=== PATIENT | female | born 1945 | race Caucasian/White ===

== ENCOUNTER 2018-09-02 09:01 | Inpatient (IN) | payer MEDICARE, MEDICAID ==
[~2018-09-02] VITALS: Ht 165.1 cm; Wt 83.9 kg
[~2018-09-02 09:01] MED LIST: ACET-8386 PO; ACYC400T PO; CYCL10TA79 PO; DOCU-300 PO; METF500T7 PO; METO25TA PO; NOVR SUBQ; PRED50TA2 PO
[2018-09-02 09:10] VITALS: BP 144/72
[2018-09-02] MEDS ORDERED: KETOROLAC 15 MG/ML VIAL IVP ONE (09:30)
[2018-09-02] MEDS ORDERED: ONDANSETRON 4 MG/2 ML VIAL IVP ONE (09:30)
[2018-09-02 10:19] LABS: BILIRUBIN,URINE NEGATIVE (NEGATIVE); BLOOD, URINE NEGATIVE (NEGATIVE); COLOR,URINE YELLOW (YELLOW); NITRITE, URINE NEGATIVE (NEGATIVE); PH,URINE 1.025 (5.0-9.0); UGLUCOSE NEGATIVE (NEGATIVE)
[2018-09-02 10:22] LABS: APPEARANCE,URINE SLIGHTLY HAZY (CLEAR); LEUKOCYTE ESTERASE ,URINE 1+ (NEGATIVE)
[2018-09-02 10:23] LABS: RBC,URINE 0-5 (RARE) /HPF (0-5); WBC,URINE 16-25 (MOD) /HPF (0-5)
[2018-09-02 10:38] LABS: BASOPHILS % (AUTO) 0.6 % (0.0-2.0); EOSINOPHILS # (AUTO) 0.1 K/uL (0-0.4); HEMATOCRIT 26.2 % (36-48); HEMOGLOBIN 8.1 g/dL (12.0-16.0); LYMPHOCYTES # (AUTO) 0.9 K/uL (2.5-16.5); LYMPHOCYTES % (AUTO) 23.4 % (20.5-51.1); MEAN CORPUSCULAR HEMOGLOBIN 22 pg (27-31); MEAN CORPUSCULAR HGB CONC 31 g/dL (33-37); MEAN CORPUSCULAR VOLUME 71.1 fL (80-94); MONOCYTES # (AUTO) 0.3 K/uL (0.8-1.0); MONOCYTES % (AUTO) 6.7 % (1.7-9.3); NEUTROPHILS # (AUTO) 2.5 K/uL (1.8-7.7); NEUTROPHILS % (AUTO) 67.3 % (42.2-75.2); PLATELET COUNT (AUTO) 96 K/uL (140-450); RED BLOOD CELL COUNT(AUTO) 3.68 MIL/uL (4.20-5.40); WHITE BLOOD COUNT (AUTO) 3.7 K/uL (4.8-10.8)
[2018-09-02] MEDS ORDERED: cefTRIAXone 1,000 MG VIAL ONE (10:38)
[2018-09-02 10:51] LABS: ANION GAP 11.2 (8-16); CARBON DIOXIDE 27.6 mmol/L (21-32); CHLORIDE 106 mmol/L (98-107); CREATININE 0.6 mg/dL (0.6-1.3); GLUCOSE 167 mg/dL (74-106); POTASSIUM 3.8 mmol/L (3.5-5.1); SODIUM SERUM 141 mmol/L (136-145); UREA NITROGEN, BLOOD 12 mg/dL (7-18)
[2018-09-02 10:54] LABS: PROTHROMBIN TIME 11.3 secs (10.8-13.4)
[2018-09-02 11:04] LABS: ALBUMIN 3.2 g/dL (3.4-5.0); ASPARTATE AMINOTRANSFERASE 32 U/L (15-37); LIPASE 94 U/L (73-393); TOTAL BILIRUBIN 0.6 mg/dL (0.0-1.0)
[2018-09-02] MEDS ORDERED: PIPERACILLIN/TAZOBACTAM 3.375 GM in DEXTROSE 5% 50 ML IV ONE (11:30)
[2018-09-02] MEDS ORDERED: PIPERACILLIN/TAZOBACTAM 3.375 GM VIAL IV ONE (11:51)
[2018-09-02] MEDS ORDERED: NACL 0.9% 1,000 ML IV SCH (12:11)
[2018-09-02] MEDS ORDERED: DOCUSATE SODIUM 100 MG GELCAP PO PRN (12:15)
[2018-09-02] MEDS ORDERED: ONDANSETRON 4 MG/2 ML VIAL IM/IVP PRN (12:15)
[2018-09-02] MEDS ORDERED: INSULIN LISPRO SLIDING SCALE 100 UNITS/ML VIAL SUBQ PRN (12:40)
[2018-09-02] MEDS ORDERED: DEXTROSE 50% 50 ML SYR IVP PRN ×2 (12:40→14:25)
[2018-09-02] MEDS ORDERED: INSULIN HUMAN REGULAR SUBQ SCH (13:00)
[2018-09-02 13:26] LABS: MAGNESIUM 1.8 mg/dL (1.8-2.4); PHOSPHORUS 2.7 mg/dL (2.5-4.9)
[2018-09-02] MEDS ORDERED: NACL 0.9% 1,000 ML IV ONE (14:25)
[2018-09-02 14:45] VITALS: BP 142/65
[2018-09-02] MEDS ORDERED: MORPHINE SULFATE 4 MG/ML SYR IVP PRN ×2 (14:55→15:10)
[2018-09-02 15:21] LABS: CHOL/HDL RATIO 2.5 (1-4.5)
[2018-09-02] MEDS: MORPHINE SULFATE 4 MG/ML SYR IVP PRN ×2 (15:28→21:21)
[2018-09-02 16:00] VITALS: BP 141/60
[2018-09-02] MEDS: SODIUM FERRIC GLUCONATE 125 MG in NACL 0.9% 100 ML IV SCH (16:23)
[2018-09-02] MEDS ORDERED: BLOOD GLUCOSE MONITORING 1 DEV DEV FS SCH (16:30)
[2018-09-02] MEDS: BLOOD GLUCOSE MONITORING 1 DEV DEV FS SCH ×2 (16:30→21:07)
[2018-09-02] MEDS ORDERED: metFORMIN 500 MG TAB PO SCH (17:00)
[2018-09-02] MEDS ORDERED: INSULIN REGULAR, HUMAN 100 UNIT/ML VIAL SUBQ SCH (17:00)
[2018-09-02] MEDS ORDERED: ATOR40TA PO (17:09)
[2018-09-02] MEDS ORDERED: GABA300C PO (17:09)
[2018-09-02] MEDS ORDERED: METF850T PO (17:09)
[2018-09-02] MEDS ORDERED: ISOS10TA9 PO (17:09)
[2018-09-02] MEDS ORDERED: LISI-420 PO (17:09)
[2018-09-02] MEDS: INSULIN LISPRO SLIDING SCALE 100 UNITS/ML VIAL SUBQ PRN ×2 (17:37→21:09)
[2018-09-02] MEDS ORDERED: KETOROLAC 30 MG/ML VIAL IVP SCH (18:35)
[2018-09-02 20:00] VITALS: BP 142/48
[2018-09-02] MEDS: ISOSORBIDE DINITRATE 10 MG TAB PO SCH (20:43)
[2018-09-02] MEDS ORDERED: METFORMIN HCL 1000 MG PO SCH (21:00)
[2018-09-03] VITALS (7 sets, daily range): BP systolic 127–158; BP diastolic 46–66
[2018-09-03] MEDS ORDERED: HYDROcodone/APAP 5/325 MG 1 TAB TAB PO SCH (00:45)
[2018-09-03] MEDS: ONDANSETRON 4 MG/2 ML VIAL IVP PRN (02:36)
[2018-09-03] MEDS: BLOOD GLUCOSE MONITORING 1 DEV DEV FS SCH ×5 (06:00→21:00)
[2018-09-03] MEDS: INSULIN LISPRO SLIDING SCALE 100 UNITS/ML VIAL SUBQ PRN ×2 (06:06→12:07)
[2018-09-03 06:07] LABS: BASOPHILS % (AUTO) 0.5 % (0.0-2.0); EOSINOPHILS # (AUTO) 0.1 K/uL (0-0.4); EOSINOPHILS % (AUTO) 2.6 % (0.0-4.0); HEMATOCRIT 23.4 % (36-48); HEMOGLOBIN 7.4 g/dL (12.0-16.0); LYMPHOCYTES # (AUTO) 0.7 K/uL (2.5-16.5); MEAN CORPUSCULAR HEMOGLOBIN 22 pg (27-31); MEAN CORPUSCULAR HGB CONC 31 g/dL (33-37); MEAN CORPUSCULAR VOLUME 70.7 fL (80-94); MONOCYTES # (AUTO) 0.2 K/uL (0.8-1.0); MONOCYTES % (AUTO) 6.7 % (1.7-9.3); NEUTROPHILS # (AUTO) 1.4 K/uL (1.8-7.7); NEUTROPHILS % (AUTO) 61.2 % (42.2-75.2); PLATELET COUNT (AUTO) 77 K/uL (140-450); RED BLOOD CELL COUNT(AUTO) 3.32 MIL/uL (4.20-5.40); RED CELL DISTRIBUTION WIDTH 18.7 % (11.6-13.7); WHITE BLOOD COUNT (AUTO) 2.3 K/uL (4.8-10.8)
[2018-09-03 06:27] LABS: ANION GAP 9.2 (8-16); CHLORIDE 108 mmol/L (98-107); CREATININE 0.7 mg/dL (0.6-1.3); GLUCOSE 270 mg/dL (74-106); POTASSIUM 4.2 mmol/L (3.5-5.1); SODIUM SERUM 140 mmol/L (136-145); UREA NITROGEN, BLOOD 13 mg/dL (7-18)
[2018-09-03] MEDS ORDERED: INFLUENZA VIRUS VACCINE QUAD 0.5 ML SYR IMVAC PRN (06:50)
[2018-09-03] MEDS ORDERED: PNEUMOCOCCAL VACCINE 23 MCG/0.5 ML VIAL IMVAC PRN (06:50)
[2018-09-03] MEDS ORDERED: DEXT 5% / NACL 0.9% 500 ML IV SCH (07:50)
[2018-09-03] MEDS: ISOSORBIDE DINITRATE 10 MG TAB PO SCH ×2 (09:19→22:46)
[2018-09-03] MEDS: GABAPENTIN 300 MG CAP PO SCH ×3 (09:19→17:00)
[2018-09-03] MEDS: LISINOPRIL 20 MG TAB PO SCH (09:19)
[2018-09-03] MEDS: CALCIUM CARB/VIT-D 500 MG/200 IU 1 TAB PO SCH (09:20)
[2018-09-03] MEDS: CYCLOBENZAPRINE 10 MG TAB PO SCH ×3 (09:20→17:00)
[2018-09-03] MEDS: metFORMIN 850 MG TAB PO SCH ×3 (09:20→12:17)
[2018-09-03] MEDS: LACTOBACILLUS RHAMNOSUS GG 1 EACH CAP PO SCH (09:21)
[2018-09-03] MEDS: METOPROLOL 25 MG TAB PO SCH (09:21)
[2018-09-03] MEDS: NACL 0.9% 1,000 ML IV SCH (15:31)
[2018-09-03] MEDS: SODIUM FERRIC GLUCONATE 125 MG in NACL 0.9% 100 ML IV SCH (15:43)
[2018-09-03] MEDS ORDERED: MORPHINE SULFATE 4 MG/ML SYR IVP SCH (21:15)
[2018-09-04] MEDS ORDERED: ZOLPIDEM 5 MG TAB PO ONE (01:25)
[2018-09-04] MEDS: NACL 0.9% 1,000 ML IV SCH ×3 (04:00→20:50)
[2018-09-04 04:25] VITALS: BP 145/53
[2018-09-04] MEDS: BLOOD GLUCOSE MONITORING 1 DEV DEV FS SCH ×4 (06:04→20:35)
[2018-09-04] MEDS: INSULIN LISPRO SLIDING SCALE 100 UNITS/ML VIAL SUBQ PRN ×4 (06:05→20:37)
[2018-09-04] MEDS: MORPHINE SULFATE 4 MG/ML SYR IVP PRN ×2 (07:06→21:18)
[2018-09-04] MEDS: ONDANSETRON 4 MG/2 ML VIAL IVP PRN (07:06)
[2018-09-04 07:35] VITALS: BP 140/67
[2018-09-04] MEDS ORDERED: INSULIN LANTUS 100 UNITS/ML 10 ML VIAL SUBQ SCH (09:00)
[2018-09-04] MEDS: CALCIUM CARB/VIT-D 500 MG/200 IU 1 TAB PO SCH (09:21)
[2018-09-04] MEDS: metFORMIN 850 MG TAB PO SCH ×3 (09:22→17:01)
[2018-09-04] MEDS: GABAPENTIN 300 MG CAP PO SCH ×3 (09:22→17:01)
[2018-09-04] MEDS: LISINOPRIL 20 MG TAB PO SCH (09:22)
[2018-09-04] MEDS: LACTOBACILLUS RHAMNOSUS GG 1 EACH CAP PO SCH (09:23)
[2018-09-04] MEDS: ISOSORBIDE DINITRATE 10 MG TAB PO SCH ×2 (09:23→20:36)
[2018-09-04] MEDS: METOPROLOL 25 MG TAB PO SCH (09:24)
[2018-09-04] MEDS: CYCLOBENZAPRINE 10 MG TAB PO SCH ×3 (09:24→17:00)
[2018-09-04] MEDS: INSULIN LANTUS 100 UNITS/ML 10 ML VIAL SUBQ SCH (09:28)
[2018-09-04] MEDS ORDERED: LIDOCAINE VISCOUS 2% 20 ML UDC PO SCH ×2 (12:00)
[2018-09-04] MEDS ORDERED: DICYCLOMINE HCL LIQUID 10 MG/5 ML UDC PO SCH (12:00)
[2018-09-04] MEDS ORDERED: ALUMINUM HYD/MAG/SIMETHICONE 30 ML UDC PO SCH (12:00)
[2018-09-04 12:02] LABS: FOLIC ACID 13.4 ng/mL (>3.0)
[2018-09-04 12:50] VITALS: BP 126/52
[2018-09-04 16:00] VITALS: BP 149/63
[2018-09-04 20:00] VITALS: BP 122/50
[2018-09-04] MEDS ORDERED: ZOLPIDEM 5 MG TAB PO SCH (22:00)
[2018-09-05] VITALS: BP 142/56
[2018-09-05 04:00] VITALS: BP 135/60
[2018-09-05] MEDS: BLOOD GLUCOSE MONITORING 1 DEV DEV FS SCH ×4 (06:49→21:15)
[2018-09-05] MEDS: INSULIN LISPRO SLIDING SCALE 100 UNITS/ML VIAL SUBQ PRN ×4 (06:51→21:16)
[2018-09-05 07:32] LABS: BASOPHILS % (AUTO) 0.5 % (0.0-2.0); EOSINOPHILS # (AUTO) 0.1 K/uL (0-0.4); EOSINOPHILS % (AUTO) 2.3 % (0.0-4.0); HEMATOCRIT 25.5 % (36-48); HEMOGLOBIN 8.1 g/dL (12.0-16.0); LYMPHOCYTES # (AUTO) 0.9 K/uL (2.5-16.5); LYMPHOCYTES % (AUTO) 29.4 % (20.5-51.1); MEAN CORPUSCULAR HEMOGLOBIN 23 pg (27-31); MEAN CORPUSCULAR HGB CONC 32 g/dL (33-37); MEAN CORPUSCULAR VOLUME 71.6 fL (80-94); MONOCYTES # (AUTO) 0.2 K/uL (0.8-1.0); MONOCYTES % (AUTO) 6.3 % (1.7-9.3); NEUTROPHILS % (AUTO) 61.5 % (42.2-75.2); PLATELET COUNT (AUTO) 86 K/uL (140-450); RED BLOOD CELL COUNT(AUTO) 3.56 MIL/uL (4.20-5.40); RED CELL DISTRIBUTION WIDTH 19.1 % (11.6-13.7); WHITE BLOOD COUNT (AUTO) 3.2 K/uL (4.8-10.8)
[2018-09-05 07:37] LABS: ANION GAP 15.1 (8-16); CARBON DIOXIDE 19.3 mmol/L (21-32); CHLORIDE 115 mmol/L (98-107); CREATININE 1.5 mg/dL (0.6-1.3); GLUCOSE 83 mg/dL (74-106); POTASSIUM 4.4 mmol/L (3.5-5.1); SODIUM SERUM 145 mmol/L (136-145); UREA NITROGEN, BLOOD 36 mg/dL (7-18)
[2018-09-05 08:00] VITALS: BP 144/62
[2018-09-05] MEDS: metFORMIN 850 MG TAB PO SCH ×3 (08:19→16:57)
[2018-09-05] MEDS: ISOSORBIDE DINITRATE 10 MG TAB PO SCH ×2 (08:19→21:27)
[2018-09-05] MEDS: CYCLOBENZAPRINE 10 MG TAB PO SCH ×3 (08:20→16:57)
[2018-09-05] MEDS: LACTOBACILLUS RHAMNOSUS GG 1 EACH CAP PO SCH (08:20)
[2018-09-05] MEDS: CALCIUM CARB/VIT-D 500 MG/200 IU 1 TAB PO SCH (08:20)
[2018-09-05] MEDS: LISINOPRIL 20 MG TAB PO SCH (08:21)
[2018-09-05] MEDS: GABAPENTIN 300 MG CAP PO SCH ×3 (08:21→16:57)
[2018-09-05] MEDS: METOPROLOL 25 MG TAB PO SCH ×2 (08:21→21:27)
[2018-09-05] MEDS: INSULIN LANTUS 100 UNITS/ML 10 ML VIAL SUBQ SCH (08:27)
[2018-09-05 08:28] LABS: HEPATITIS A ANTIBODY IGM Negative (Negative); HEPATITIS B CORE AB TOTAL Negative (Negative); HEPATITIS B SURFACE ANTIBODY Non Reactive (.); HEPATITIS B SURFACE ANTIGEN Negative (Negative)
[2018-09-05] MEDS: MORPHINE SULFATE 4 MG/ML SYR IVP PRN (10:43)
[2018-09-05] MEDS ORDERED: oxyCODONE 5 MG TAB PO PRN ×2 (11:05→21:20)
[2018-09-05 12:00] VITALS: BP 120/55
[2018-09-05] MEDS ORDERED: GLIP5TAB4 PO (14:11)
[2018-09-05] MEDS ORDERED: OXYC5TAB4 PO (14:11)
[2018-09-05 16:00] VITALS: BP 139/56
[2018-09-05 20:00] VITALS: BP 151/45
[2018-09-05] MEDS ORDERED: ZOLPIDEM 5 MG TAB PO SCH (21:15)
[2018-09-05] MEDS: HYDROcodone/APAP 7.5/325 MG 1 TAB PO PRN (22:07)
[2018-09-06] VITALS: BP 121/57
[2018-09-06 06:48] LABS: BASOPHILS % (AUTO) 0.5 % (0.0-2.0); EOSINOPHILS # (AUTO) 0.1 K/uL (0-0.4); EOSINOPHILS % (AUTO) 2.9 % (0.0-4.0); HEMATOCRIT 25.1 % (36-48); LYMPHOCYTES # (AUTO) 0.9 K/uL (2.5-16.5); LYMPHOCYTES % (AUTO) 30.4 % (20.5-51.1); MEAN CORPUSCULAR HEMOGLOBIN 23 pg (27-31); MEAN CORPUSCULAR HGB CONC 32 g/dL (33-37); MEAN CORPUSCULAR VOLUME 72.2 fL (80-94); MONOCYTES # (AUTO) 0.2 K/uL (0.8-1.0); MONOCYTES % (AUTO) 6.8 % (1.7-9.3); NEUTROPHILS # (AUTO) 1.8 K/uL (1.8-7.7); NEUTROPHILS % (AUTO) 59.4 % (42.2-75.2); PLATELET COUNT (AUTO) 88 K/uL (140-450); RED BLOOD CELL COUNT(AUTO) 3.48 MIL/uL (4.20-5.40); RED CELL DISTRIBUTION WIDTH 18.8 % (11.6-13.7); WHITE BLOOD COUNT (AUTO) 3.1 K/uL (4.8-10.8)
[2018-09-06 06:59] LABS: MAGNESIUM 1.8 mg/dL (1.8-2.4); PHOSPHORUS 3.7 mg/dL (2.5-4.9)
[2018-09-06 07:02] LABS: ANION GAP 11.7 (8-16); CARBON DIOXIDE 28.3 mmol/L (21-32); CHLORIDE 107 mmol/L (98-107); CREATININE 0.6 mg/dL (0.6-1.3); GLUCOSE 172 mg/dL (74-106); SODIUM SERUM 143 mmol/L (136-145); UREA NITROGEN, BLOOD 16 mg/dL (7-18)
[2018-09-06] MEDS: BLOOD GLUCOSE MONITORING 1 DEV DEV FS SCH ×2 (07:03→12:28)
[2018-09-06] MEDS: INSULIN LISPRO SLIDING SCALE 100 UNITS/ML VIAL SUBQ PRN ×2 (07:04→12:38)
[2018-09-06 08:30] VITALS: BP 157/72
[2018-09-06] MEDS ORDERED: amLODIPine 5 MG TAB PO SCH (09:00)
[2018-09-06] MEDS: metFORMIN 850 MG TAB PO SCH ×2 (09:12→12:33)
[2018-09-06] MEDS: CYCLOBENZAPRINE 10 MG TAB PO SCH (09:13)
[2018-09-06] MEDS: LACTOBACILLUS RHAMNOSUS GG 1 EACH CAP PO SCH (09:13)
[2018-09-06] MEDS: GABAPENTIN 300 MG CAP PO SCH (09:14)
[2018-09-06] MEDS: ISOSORBIDE DINITRATE 10 MG TAB PO SCH (09:14)
[2018-09-06] MEDS: METOPROLOL 25 MG TAB PO SCH (09:14)
[2018-09-06] MEDS: CALCIUM CARB/VIT-D 500 MG/200 IU 1 TAB PO SCH (09:16)
[2018-09-06] MEDS ORDERED: INSU100S5 SUBQ (09:22)
[2018-09-06] MEDS: INSULIN LANTUS 100 UNITS/ML 10 ML VIAL SUBQ SCH (09:23)
[2018-09-06] MEDS ORDERED: LISINOPRIL 20 MG TAB PO SCH (09:34)
[2018-09-06] MEDS ORDERED: DOCU-299 PO (09:46)
[2018-09-06] MEDS ORDERED: LEVO750T51 PO (09:47)
[2018-09-06] MEDS ORDERED: LACT10CA1 PO (09:47)
[2018-09-06 10:44] VITALS: BP 157/72
[2018-09-06] MEDS: HYDROcodone/APAP 7.5/325 MG 1 TAB PO PRN (12:16)
[2018-09-07] MEDS ORDERED: LISINOPRIL 20 MG TAB PO SCH (09:00)
== END 2018-09-06 12:43 | disposition home or self-care (01) | DRG 871 ==
LOC: MED 09:01 → MTU 14:20
PROVIDERS: ADMIT General Practice; ATTEND General Practice
PROC: 3E02340 Introduction of Influenza Vaccine into Muscle, Percutaneous Approach (ICD-10-PCS; principal; 2018-09-03)
PROC: 3E0234Z Introduction of Serum, Toxoid and Vaccine into Muscle, Percutaneous Approach (ICD-10-PCS; 2018-09-03)
DX: A41.9 Sepsis, unspecified organism (principal); N17.0 Acute kidney failure with tubular necrosis; N10 Acute pyelonephritis; D61.818 Other pancytopenia; E44.1 Mild protein-calorie malnutrition; I43 Cardiomyopathy in diseases classified elsewhere; E11.65 Type 2 diabetes mellitus with hyperglycemia; K74.60 Unspecified cirrhosis of liver; E78.5 Hyperlipidemia, unspecified; Z96.651 Presence of right artificial knee joint; D50.9 Iron deficiency anemia, unspecified; E86.0 Dehydration; K80.20 Calculus of gallbladder without cholecystitis without obstruction; E66.9 Obesity, unspecified; I11.9 Hypertensive heart disease without heart failure; Z68.30 Body mass index [BMI] 30.0-30.9, adult; Z23 Encounter for immunization; Z79.4 Long term (current) use of insulin; Z79.899 Other long term (current) drug therapy; Z90.89 Acquired absence of other organs; Z98.42 Cataract extraction status, left eye; Z98.41 Cataract extraction status, right eye; Z91.14 Patient's other noncompliance with medication regimen
CPT/HCPCS: 36415; 71045; 76705; 76770; 78445; 80048; 80053; 81001; 82140; 82607; 82728; 82746; 82948; 83036; 83540; 83605; 83690; 83735; 83880; 84100; 84443; 84484; 85025; 85045; 85610; 85730; 86704; 86706; 86708; 86709; 86803; 87040; 87081; 87086; 87186; 87340; 90658; 90732; 96365; 96367; 96375; 99285; A9510; J0696; J1815; J1885; J2270; J2405; J2543; J2916; J7030; J7042; J7060; Q0092

== ENCOUNTER 2018-12-24 11:35 | Emergency (ER) | payer OTHER, MEDICAID ==
[~2018-12-24] VITALS: Ht 152.4 cm; Wt 88.5 kg
[~2018-12-24 11:35] MED LIST changes: -ACET-8386 PO; -ACYC400T PO; -CYCL10TA79 PO; +DOCU-299 PO; -DOCU-300 PO; +GABA300C PO; +INSU100S5 SUBQ; +ISOS10TA9 PO; +LACT10CA1 PO; +LEVO750T51 PO; +LISI-420 PO; -METF500T7 PO; +METF850T PO; -NOVR SUBQ; +OXYC5TAB4 PO; -PRED50TA2 PO
[2018-12-24 11:44] VITALS: BP 113/53
--- NOTE | 2018-12-24 11:50 | NUR ---
PT TO ER BED 8
--- NOTE | 2018-12-24 12:06 | NUR ---
C/O RIGHT EAR PAIN X 3 DAYS. PT STATES PAIN RADIATING TO JAW AND HEAD. PAIN 9/10, CONSTANT. REPORTS CHILLS, WEAKNESS, AND NAUSEA. . DENIES V/D; SKIN IS PINK/WARM/DRY; AAOX4 . LUNGS CLEAR BL; HR EVEN AND REGULAR; PT DENIES ANY FEVER, CP, SOB, OR COUGH AT THIS TIME; PATIENT STATES PAIN OF 9/10 AT THIS TIME; VSS; PATIENT POSITIONED FOR COMFORT; HOB ELEVATED; BEDRAILS UP X2; BED DOWN. ER MD MADE AWARE OF PT STATUS.
[2018-12-24] MEDS ORDERED: LIDOCAINE 1% 500 MG/50 ML VIAL INJ SCH (12:55)
[2018-12-24] MEDS ORDERED: LIDOCAINE MPF 1% 5mL VIAL ONE (13:42)
[2018-12-24] MEDS ORDERED: IBUPROFEN 400 MG TAB PO ONE (13:50)
--- NOTE | 2018-12-24 14:00 | NUR ---
OFFERED PT MILK AND CRACKERS.
[2018-12-24] MEDS ORDERED: HYDROcodone/APAP 5/325 MG 1 TAB TAB PO ONE (14:30)
[2018-12-24 15:37] VITALS: BP 106/50
--- NOTE | 2018-12-24 15:37 | NUR ---
Patient discharged with v/s stable. Written and verbal after care instructions given and explained. Patient alert, oriented and verbalized understanding of instructions. Ambulatory with steady gait. All questions addressed prior to discharge. ID band removed. Patient advised to follow up with PMD. Rx of NAPROSYN AND NORCO given. Patient educated on indication of medication including possible reaction and side effects. Opportunity to ask questions provided and answered.
== END 2018-12-24 15:37 | disposition home or self-care (01) ==
LOC: MED 11:35
DX: G44.209 Tension-type headache, unspecified, not intractable (principal); M25.511 Pain in right shoulder; H92.01 Otalgia, right ear; R05 Cough; I10 Essential (primary) hypertension; E11.9 Type 2 diabetes mellitus without complications; Z79.4 Long term (current) use of insulin; Z79.2 Long term (current) use of antibiotics; Z79.84 Long term (current) use of oral hypoglycemic drugs
CPT/HCPCS: 20552; 99284; J2001

== ENCOUNTER 2019-04-06 21:02 | Emergency (ER) | payer OTHER, MEDICAID ==
[~2019-04-06] VITALS: Ht 157.5 cm; Wt 87.5 kg
[2019-04-06 21:59] VITALS: BP 105/49
--- NOTE | 2019-04-06 22:13 | NUR ---
PT AMBULATED TO BED 9
--- NOTE | 2019-04-06 22:15 | NUR ---
PT COMES TO ED FOR C/O CONSTIPATION X2 WEEKS, N/V X2 TODAY, PT HAS DIFFUSE ABD PAIN TO BACK WELL. PT STATES ABD PAIN ACHINESS 5/10. PT AAOX4. ACTIVE BOWEL SOUNDS. LUANNRNEY LOCKED IN LOWEST POSITION. HX ARTHRITIS, DM, HTN, HLD, HERNIA SURGERY RX LISINOPRIL, INSULIN, ISORBIDE, METFORMIN, ASPIRIN, SIMVASTATIN
--- NOTE | 2019-04-06 23:10 | NUR ---
Patient being evaluated by physician at bedside.
[2019-04-06] MEDS ORDERED: ONDANSETRON 4 MG/2 ML VIAL IM ONE (23:30)
[2019-04-06] MEDS ORDERED: KETOROLAC 60 MG/2 ML VIAL IM ONE (23:30)
[2019-04-07 00:35] VITALS: BP 102/62
--- NOTE | 2019-04-07 00:35 | NUR ---
Patient discharged with v/s stable. Written and verbal after care instructions given and explained. Patient alert, oriented and verbalized understanding of instructions. Ambulatory with steady gait. All questions addressed prior to discharge. ID band removed. Patient advised to follow up with PMD. Rx of ZOFRAN MAG CITRATE MIRALAX AND MOTRIN given. Patient educated on indication of medication including possible reaction and side effects. Opportunity to ask questions provided and answered.
== END 2019-04-07 00:35 | disposition home or self-care (01) ==
LOC: MED 21:02
DX: K59.00 Constipation, unspecified (principal); R11.2 Nausea with vomiting, unspecified; E11.9 Type 2 diabetes mellitus without complications; I10 Essential (primary) hypertension; Z79.2 Long term (current) use of antibiotics; Z79.899 Other long term (current) drug therapy; Z79.4 Long term (current) use of insulin
CPT/HCPCS: 74022; 81002; 96372; 99283; J1885; J2405